=== PATIENT | female | born 2000 | race Two or more races ===

== ENCOUNTER 2020-01-27 17:29 | Emergency (ER) | payer BC, MEDICAID, OTHER, SELFPAY ==
[~2020-01-27] VITALS: Ht 162.6 cm; Wt 53.3 kg
[2020-01-27] MEDS ORDERED: MAALOX/HYOSCYAMINE/LIDOCAINE 45 ML BTL ONE (18:05)
[2020-01-27 18:24] LABS: BASOPHILS # (AUTO) 0.02 x10^3/uL (0-0.3); BASOPHILS % (AUTO) 0 % (0-1); EOSINOPHILS # (AUTO) 0.08 x10^3/uL (0-0.8); EOSINOPHILS % (AUTO) 1 % (1-7); LYMPHOCYTES # (AUTO) 1.89 x10^3/uL (1-6.1); LYMPHOCYTES % (AUTO) 33 % (22-44); MD NO; MEAN CORPUSCULAR HEMOGLOBIN 29.7 pg (27.0-34.8); MEAN CORPUSCULAR HGB CONC 33.3 g/dL (32.4-35.8); MEAN CORPUSCULAR VOLUME 89.2 fL (80-100); MEAN PLATELET VOLUME 8.3 fL (7.4-10.4); MONOCYTES # (AUTO) 0.69 x10^3/uL (0-1.4); MONOCYTES % (AUTO) 12 % (2-9); NEUTROPHILS # (AUTO) 3.16 x10^3/uL (1.8-8.0); NEUTROPHILS % (AUTO) 54 % (42-75); PLATELET COUNT 233 x10^3/uL (130-400); RED CELL DISTRIBUTION WIDTH 13.2 % (9.6-15.2)
[2020-01-27 18:51] LABS: MICROSCOPIC AUTO
[2020-01-27] MEDS ORDERED: MAALOX/HYOSCYAMINE/LIDOCAINE 45 ML BTL PO ONE (19:00)
[2020-01-27] MEDS ORDERED: KETOROLAC 30 MG/1 ML IM ONE (19:30)
[2020-01-27] MEDS ORDERED: KETOROLAC 30 MG/1 ML ONE (19:32)
--- NOTE | 2020-01-27 19:38 | NUR ---
PT MEDICATED WITH TORADOL. PT VERBALIZED UNDERSTANDING OF DISCHARGE AND FOLLOW UP INSTRUCTIONS AND IS GETTING DRESSED.
[2020-01-27 19:39] VITALS: BP 119/72
== END 2020-01-27 19:51 | disposition home or self-care (01) ==
LOC: ED 19:40
DX: M94.0 Chondrocostal junction syndrome [Tietze] (principal); R07.2 Precordial pain; R10.11 Right upper quadrant pain; R94.31 Abnormal electrocardiogram [ECG] [EKG]
CPT/HCPCS: 36415; 71045; 76700; 81001; 83690; 84703; 85025; 85379; 87086; 93005; 96372; 99285; J1885